=== PATIENT | male | born 1985 | race Caucasian/White ===

== ENCOUNTER 2020-04-08 00:34 | Emergency (ER) | payer SELFPAY ==
[~2020-04-08] VITALS: Ht 177.8 cm; Wt 103.0 kg
[2020-04-08] MEDS ORDERED: ALBUTEROL/IPRATROPIUM 2.5MG/0.5MG, 3 ML NPPB ONE (01:00)
[2020-04-08] MEDS ORDERED: ALBUTEROL/IPRATROPIUM 2.5MG/0.5MG, 3 ML ONE (01:07)
--- NOTE | 2020-04-08 01:35 | NUR ---
PATIENT STATES FEELING MUCH BETTER AFTER BREATHING TREATMENT. CHART UP FOR MD TO RE-EVAL.
--- NOTE | 2020-04-08 01:42 | NUR ---
ERP at bedside for re-evaluation.
[2020-04-08 02:22] VITALS: BP 127/69
--- NOTE | 2020-04-08 02:22 | NUR ---
patient discharged with prescriptions and instruction. verbalized understanding.
== END 2020-04-08 02:24 | disposition home or self-care (01) ==
LOC: ED 02:02
DX: J45.21 Mild intermittent asthma with (acute) exacerbation (principal)
CPT/HCPCS: 71045; 93005; 94640; 99283; J7512